=== PATIENT | female | born 1980 | race Caucasian/White ===

== ENCOUNTER 2017-09-22 11:06 | Inpatient (IN) | payer MEDICAID ==
[~2017-09-22] VITALS: Ht 149.9 cm; Wt 47.2 kg
--- NOTE | 2017-09-22 11:25 | NUR ---
patient amb. to bed #2 with
[2017-09-22 11:27] VITALS: BP 126/95
[2017-09-22] MEDS ORDERED: NACL 0.9% 1,000 ML IV SCH ×2 (11:32→13:58)
[2017-09-22] MEDS ORDERED: KETOROLAC 30 MG/ML VIAL IVP ONE (11:35)
[2017-09-22] MEDS ORDERED: ONDANSETRON 4 MG/2 ML VIAL IVP ONE (11:35)
[2017-09-22 12:00] LABS: HEMATOCRIT 43.9 % (36-48); HEMOGLOBIN 14.4 g/dL (12.0-16.0); MEAN CORPUSCULAR HEMOGLOBIN 30 pg (27-31); MEAN CORPUSCULAR HGB CONC 33 g/dL (33-37); MEAN CORPUSCULAR VOLUME 90 fL (80-94); PLATELET COUNT (AUTO) 441 K/uL (140-450); RED BLOOD CELL COUNT(AUTO) 4.89 MIL/uL (4.20-5.40); WHITE BLOOD COUNT (AUTO) 8.7 K/uL (4.8-10.8)
--- NOTE | 2017-09-22 12:25 | NUR ---
pt stated pain relieved at this time.
[2017-09-22 12:58] LABS: LYMPHOCYTES % (MANUAL) 20 % (20-46); MONOCYTES % (MANUAL) 6 % (5-12)
[2017-09-22 13:06] LABS: ANION GAP 25.1 (8-16); CARBON DIOXIDE 11.5 mmol/L (21-32); CREATININE 0.6 mg/dL (0.6-1.3); POTASSIUM 3.6 mmol/L (3.5-5.1)
[2017-09-22 13:12] LABS: ALBUMIN 3.5 g/dL (3.4-5.0); TOTAL BILIRUBIN 0.6 mg/dL (0.0-1.0)
[2017-09-22 13:13] LABS: PROTHROMBIN TIME 9.8 secs (10.8-13.4)
[2017-09-22] MEDS ORDERED: NACL 0.9% 1,000 ML IV ONE (13:20)
[2017-09-22] MEDS ORDERED: INSULIN REGULAR, HUMAN 100 UNIT/ML VIAL SUBQ ONE (13:25)
[2017-09-22] MEDS ORDERED: NACL 0.45% 1,000 ML IV ONE (13:40)
[2017-09-22] MEDS ORDERED: INSULIN REGULAR, HUMAN 100 UNIT in NACL 0.9% 100 ML IV ONE ×2 (13:40)
[2017-09-22] MEDS ORDERED: HYDROcodone/APAP 7.5/325 MG 1 TAB PO PRN (14:00)
[2017-09-22] MEDS ORDERED: ACETAMINOPHEN 325 MG TAB PO PRN (14:00)
[2017-09-22] MEDS ORDERED: ONDANSETRON 4 MG/2 ML VIAL IVP PRN (14:00)
[2017-09-22] MEDS ORDERED: DEXTROSE 50% 50 ML SYR IVP PRN (14:10)
[2017-09-22 14:20] LABS: BILIRUBIN,URINE NEGATIVE (NEGATIVE); BLOOD, URINE 3+ (NEGATIVE); COLOR,URINE YELLOW (YELLOW); LEUKOCYTE ESTERASE ,URINE NEGATIVE (NEGATIVE); NITRITE, URINE NEGATIVE (NEGATIVE); UGLUCOSE 2+ (NEGATIVE)
[2017-09-22] MEDS ORDERED: INSULIN REGULAR, HUMAN 100 UNIT in NACL 0.9% 100 ML IV SCH ×2 (14:30)
[2017-09-22] MEDS ORDERED: POTASSIUM CHL 20 MEQ/NACL 0.9% 1,000 ML IV ONE (14:30)
[2017-09-22] MEDS ORDERED: POTASSIUM CHL 20 MEQ/D5-1/2NS 1,000 ML IV ONE (14:30)
[2017-09-22 14:45] LABS: APPEARANCE,URINE HAZY (CLEAR)
[2017-09-22 14:51] LABS: RBC,URINE 3-10 (FEW) /HPF (0-5); WBC,URINE 0-5 (RARE) /HPF (0-5)
[2017-09-22 14:54] LABS: CHOL/HDL RATIO 6.5 (1-4.5); FREE T4 (FREE THYROXINE) 1.31 ng/dL (0.76-1.46); MAGNESIUM 2.1 mg/dL (1.8-2.4); PHOSPHORUS 2.2 mg/dL (2.5-4.9); THYROID STIMULATING HORMONE 1.36 uIU/mL (0.34-3.74)
--- NOTE | 2017-09-22 15:09 | NUR ---
PT TRANSFERRED TO ICU BED 3. PT AWAKE, ALERT, AND ORIENTED. ON ROOM AIR, NO S/S OF RESPIRATORY DISTRESS NOTED. VITALS STABLE AT THIS TIME.
[2017-09-22] MEDS ORDERED: BLOOD GLUCOSE MONITORING 1 DEV DEV FS SCH (15:10)
--- NOTE | 2017-09-22 15:15 | NUR ---
RECEIVED PT FROM ER MOODY WHITTAKER. SHE IS AWAKE AND ALERT SERBIAN SPEAKING. SKIN DRY ANAD WARM TO TOUCH SHE IS IN ROOM AIRO2 SAT 100% IV SITE ON RT AC HAS # 20 HEP LOCK. ON RT HAND HAS #22 INFUSING INSULIN IV DRIP [id number] /HR THE SITE ARE DRY AND INTACT. ABDOMEN SOFT . NON-DISTENDED EXTREAMITIES NO DEFORMITY . NO EDEMATES NOTE. SHE ADM. TO ICU#3 , PT. WAS SEEN BY DR. FLYNN AT [facility]
[2017-09-22 16:19] VITALS: BP 118/78
[2017-09-22 16:49] LABS: CARBON DIOXIDE 13.7 mmol/L (21-32); CREATININE 0.4 mg/dL (0.6-1.3)
[2017-09-22 16:50] LABS: ANION GAP 17.3 (8-16)
--- NOTE | 2017-09-22 17:10 | NUR ---
BLOOD SUGAR 194. INSULIN DRIP RATE DECREASED TO 2.26 UNITS/HR (2.26 ML/HR). DR. POPE MADE AWARE. NO NEW ORDERS AT THIS TIME.
--- NOTE | 2017-09-22 17:30 | NUR ---
CT ABDOMEN/PELVIS COMPLETED. PT TOLERATED WELL. VITAL SIGNS STABLE.
[2017-09-22 18:00] VITALS: BP 103/69
--- NOTE | 2017-09-22 18:15 | NUR ---
BLOOD SUGAR 225. NO CHANGES FOR INSULIN DRIP RATE.
[2017-09-22] MEDS: BLOOD GLUCOSE MONITORING 1 DEV DEV FS SCH ×5 (19:10→23:18)
--- NOTE | 2017-09-22 19:20 | NUR ---
REPORT GIVEN TO NIGHT NURSE FOR CONTINUITY OF CARE. PT IS IN STABLE CONDITION.
--- NOTE | 2017-09-22 19:29 | NUR ---
LM=[id number]. INSULIN DRIP INCREASED TO 4.5 UNITS/HR AND IVF CHANGED TO NACL+KCL ORDERED.
--- NOTE | 2017-09-22 19:30 | NUR ---
PT A&OX4. RUSSIAN SPEAKING. BILATERAL LUNGS SOUND CLEAR. 100% @ROOM AIR. S1 AND S2 HEARD WITHOUT ABNORMAL HEART SOUND. PT C/O ACHING AND TINGLING PAIN TO THE BILATERAL LOWER FEET. NORCO ADMINISTERED ORDERED. WILL EVALUATE THE EFFECTIVENESS. IV SITES TO LEFT HAND 22G AND RIGHT AC 20G. ALL PATENT AND ASYMPTOMATIC. SR ON MONITOR. AFEBRILE. DENIES N/V AT THIS TIME. CAP REFILL WITHIN 2 SEC. ABLE TO MOVE ALL EXTREMITIES WITHOUT DIFFICULTY. BED SIDE COMMODE NOTED. INSTRUCTED WITH CALL LIGHT SYSTEM. CALL LIGHT IN REACH AND HOB ELEVATED 30 DEGREES. BED KEPT TO THE LOWEST POSITION. WILL CONTINUE TO MONITOR.
[2017-09-22 20:00] VITALS: BP 110/72
--- NOTE | 2017-09-22 20:16 | NUR ---
YN=782. INSULIN DRIP CHANGED TO 2.26 UNITS/HR AND IVF CHANGED TO D5 1/2 NS+KCL @100ML/HR (BS<250) ORDERED.
[2017-09-22 20:28] LABS: ANION GAP 14.7 (8-16); CARBON DIOXIDE 16.1 mmol/L (21-32); CREATININE 0.4 mg/dL (0.6-1.3)
[2017-09-22] MEDS: DOCUSATE SODIUM 100 MG GELCAP PO SCH (20:29)
[2017-09-22 20:30] LABS: POTASSIUM 2.8 mmol/L (3.5-5.1)
[2017-09-22] MEDS ORDERED: KCL 20 MEQ/WATER INJ PREMIX 200 ML IV ONE (20:38)
--- NOTE | 2017-09-22 20:38 | NUR ---
DR. CHAIDEZ IN UNIT. NOTIFIED ABOUT THE K RIDER BEING NOT VERIFIED YET AND [facility] IS NOT AVAILABLE UNTIL 9PM. AND THE CHARGE NURSE MADE AWARE OF THE OVERWRITING THE MED TO BE STARTED DUE TO LOW POTASSIUM LEVEL.
--- NOTE | 2017-09-22 20:40 | NUR ---
FIRST BAG OF K RIDER STARTED ORDERED.
--- NOTE | 2017-09-22 21:02 | NUR ---
[facility] CALLED @[phone] FOR NEED OF VERIFICATION OF NEW MEDS.
--- NOTE | 2017-09-22 21:05 | NUR ---
FF=441. CONTINUING WITH SAME INSULIN DRIP AND IVF. Brenden ACOSTA IS RUNNING WELL.
--- NOTE | 2017-09-22 21:10 | NUR ---
KCL 40 MYRA ORAL TAB ORDER NOTED. CALLED DR. CHAIDEZ IF OK TO GIVE BECAUSE K RIDER IV [address] CHAIDEZ SAID OK TO GIVE BOTH DUE TO POTASSIUM BEING VERY LOW. WILL CARRY OUT.
[2017-09-22] MEDS ORDERED: POTASSIUM CHLORIDE 10 MEQ TABER PO SCH (21:30)
[2017-09-22] MEDS ORDERED: KCL 20 MEQ/WATER INJ PREMIX 200 ML IV SCH (21:30)
[2017-09-22 22:00] VITALS: BP 95/64
--- NOTE | 2017-09-22 22:10 | NUR ---
PR=767. CONTINUING W/ SAME RATE ON INSULIN DRIP, SAME IVF. K RIDER IS RUNNING ORDERED.
--- NOTE | 2017-09-22 22:40 | NUR ---
2ND BAG OF K RIDER IS RUNNING AT THIS TIME.
--- NOTE | 2017-09-22 23:18 | NUR ---
KU=159. SAME RATE OF INSULIN DRIP AND IVF ARE RUNNING. PT DENIES PAIN OR DISCOMFORT AT THIS TIME. NO ACUTE DISTRESS NOTED.
--- NOTE | 2017-09-22 23:46 | NUR ---
PT WAS ASSISTED TO USE BED SIDE COMMODE. URINATED 600ML CLEAR YELLOW URINE. ASSISTED BACK TO BED. PT DENIES PAIN OR DISCOMFORT. VS WITHOUT ACUTE DISTRESS. WILL CONTINUE TO MONITOR.
[2017-09-23] VITALS (9 sets, daily range): BP systolic 99–118; BP diastolic 52–90
--- NOTE | 2017-09-23 00:15 | NUR ---
DZ=773. SAME RATE OF INSULIN DRIP AND IVF RUNNING. PT DENIES PAIN OR DISCOMFORT. VS WITHOUT ACUTE DISTRESS. ALL SAFETY PRECAUTIONS ARE IN PLACE.
[2017-09-23] MEDS: BLOOD GLUCOSE MONITORING 1 DEV DEV FS SCH ×8 (00:16→23:34)
[2017-09-23 00:32] LABS: ANION GAP 13.3 (8-16); CARBON DIOXIDE 17.5 mmol/L (21-32); POTASSIUM 3.8 mmol/L (3.5-5.1)
[2017-09-23 00:43] LABS: CREATININE 0.3 mg/dL (0.6-1.3)
--- NOTE | 2017-09-23 01:25 | NUR ---
KQ=626. CONTINUING WITH SAME RATE OF INSULIN DRIP AND IVF. DENIES PAIN OR DISCOMFORT. VS WITHOUT ACUTE DISTRESS. WILL CONTINUE TO MONITOR.
--- NOTE | 2017-09-23 01:50 | NUR ---
RECEIVED NEW ORDERS FROM DR. CHAIDEZ. PER DR. CHAIDEZ, PT'S 2 CONSECUTIVE ANIONGAPS ARE CLOSED. NEW ORDER RECEIVED AND WILL CARRY OUT.
[2017-09-23] MEDS ORDERED: INSULIN LANTUS 100 UNITS/ML 10 ML VIAL SUBQ SCH (02:00)
[2017-09-23] MEDS: NACL 0.9% 1,000 ML IV SCH ×2 (02:07→12:07)
--- NOTE | 2017-09-23 02:10 | NUR ---
KI=228. LANTUS 11 UNITS ADMINISTERED AND IVF CHANGED TO NACL @90ML/HR ORDERED. INSULIN DRIP STILL RUNNING AT 2.26 UNITS/HR. WILL STOP THE INSULIN DRIP 1-[address] CHAIDEZ'S ORDER. PT DENIES PAIN OR DISCOMFORT. VS WITH NO ACUTE DISTRESS NOTED. WILL CONTINUE TO MONITOR.
--- NOTE | 2017-09-23 03:13 | NUR ---
LY=643. DR. CHAIDEZ MADE AWARE AND OK TO DISCONTINUE INSULIN DRIP AT THIS TIME. NOTED AND WILL CARRY OUT.
[2017-09-23] MEDS ORDERED: DEXTROSE 50% 50 ML SYR IVP PRN (03:15)
[2017-09-23] MEDS: INSULIN LISPRO SLIDING SCALE 100 UNITS/ML VIAL SUBQ PRN ×6 (04:04→23:42)
--- NOTE | 2017-09-23 04:05 | NUR ---
DW=778. INSULIN COVERAGE ADMINISTERED PER SLIDING SCALE.
--- NOTE | 2017-09-23 04:19 | NUR ---
ASSISTED PT TO USE THE BED SIDE COMMODE. PT STARTED MENSTRUATION. URINATED 600ML. PROVIDED WITH FEMININE PAD. ASSISTED WITH MORNING CARE. DENIES PAIN OR DISCOMFORT. VS WITHOUT ACUTE DISTRESS. AFEBRILE. ALL SAFETY PRECAUTIONS ARE IN PLACE. WILL CONTINUE TO MONITOR.
[2017-09-23 04:52] LABS: CARBON DIOXIDE 18.5 mmol/L (21-32); CREATININE 0.3 mg/dL (0.6-1.3); POTASSIUM 3.5 mmol/L (3.5-5.1)
[2017-09-23 04:56] LABS: MAGNESIUM 1.8 mg/dL (1.8-2.4); PHOSPHORUS 1.5 mg/dL (2.5-4.9)
[2017-09-23 05:13] LABS: BASOPHILS # (AUTO) 0.3 K/uL (0.00-0.22); EOSINOPHILS # (AUTO) 0.1 K/uL (0-0.4); HEMATOCRIT 36.6 % (36-48); HEMOGLOBIN 12.3 g/dL (12.0-16.0); LYMPHOCYTES # (AUTO) 1.8 K/uL (2.5-16.5); LYMPHOCYTES % (AUTO) 23.4 % (20.5-51.1); MEAN CORPUSCULAR HEMOGLOBIN 30 pg (27-31); MEAN CORPUSCULAR HGB CONC 34 g/dL (33-37); MEAN CORPUSCULAR VOLUME 88 fL (80-94); MONOCYTES # (AUTO) 0.8 K/uL (0.8-1.0); MONOCYTES % (AUTO) 9.8 % (1.7-9.3); NEUTROPHILS # (AUTO) 4.7 K/uL (1.8-7.7); NEUTROPHILS % (AUTO) 61.8 % (42.2-75.2); PLATELET COUNT (AUTO) 424 K/uL (140-450); RED BLOOD CELL COUNT(AUTO) 4.15 MIL/uL (4.20-5.40); RED CELL DISTRIBUTION WIDTH 13.1 % (11.6-13.7); WHITE BLOOD COUNT (AUTO) 7.7 K/uL (4.8-10.8)
--- NOTE | 2017-09-23 05:30 | NUR ---
PT SLEEPING. NO S/SX OF PAIN OR DISCOMFORT. VS WITHOUT ACUTE DISTRESS. WILL CONTINUE TO MONITOR.
--- NOTE | 2017-09-23 07:17 | NUR ---
BED SIDE REPORT GIVEN TO MORNING RNDIAN FOR CONTINUITY OF CARE. PT VS WITHOUT ACUTE DISTRESS. ALL SAFETY PRECAUTIONS ARE IN PLACE.
--- NOTE | 2017-09-23 07:17 | NUR ---
RECEIVED REPORT FROM DIAN MAKI. PT IS COOPERATIVE, AWAKE AND ALERT IN BED, A&OX4. ABLE TO MOVE FREELY IN BED. PT HAS HOB 35% AND SCDS ON. NS RUNNING IN RIGHT AC, 20 G, 90ML/HR. PERRLA, BRISK. SKIN IS WARM, DRY AND IN TACT. LUNG SOUNDS ARE CLEAR AND SLIGHTLY DIMINISHED AT BASE. BOWELS SOUNDS PRESENT IN ALL 4 QUADRANTS. PT ON CLEAR LIQUID DIET. AMBULATES AND USES THE COMMODE. NORMAL SINUS ON MONITOR. PTS DISTAL PULSES +3 WITH NO EDEMA PRESENT. PT DENIES ALL PAIN.
--- NOTE | 2017-09-23 08:00 | NUR ---
BLOOD SUGAR= 303, 8 UNITS OF HUMALOG INSULIN COVERAGE NEEDED, SLIDING SCALE.
[2017-09-23] MEDS: GABAPENTIN 300 MG CAP PO SCH ×3 (08:45→18:12)
[2017-09-23] MEDS: DOCUSATE SODIUM 100 MG GELCAP PO SCH ×2 (08:45→20:37)
[2017-09-23] MEDS: ASPIRIN 81 MG TAB.CHEW PO SCH (08:45)
[2017-09-23] MEDS: ATORVASTATIN 20 MG TAB PO SCH (08:50)
--- NOTE | 2017-09-23 08:50 | NUR ---
PT TRAY ARRIVED OF NEW DIET, ORDER PLACED BY DR. POPE. PT EATING, AT BEDSIDE.
[2017-09-23 09:38] LABS: ANION GAP 13.8 (8-16); CARBON DIOXIDE 19.8 mmol/L (21-32); CREATININE 0.3 mg/dL (0.6-1.3); POTASSIUM 3.6 mmol/L (3.5-5.1)
--- NOTE | 2017-09-23 11:10 | NUR ---
ORDERS RECEIVED FROM DR. POPE FOR PT TO SHOWER AFTER TRANSFERRED TO TELE. PT HAS REQUESTED TO TAKE ONE SOON POSSIBLE.
--- NOTE | 2017-09-23 11:45 | NUR ---
RECEIVED ORDERS FROM DR. POPE FOR TRANSFER TO TELE. [facility] HAS BEEN CALLED AND NOTIFIED OF ORDERS. WAITING FOR ROOM NUMBER.
--- NOTE | 2017-09-23 11:50 | NUR ---
PROVIDED EDUCATION HANDOUTS IN MALAY ON DKA, NEW DX OF DIABETES, HEALTHY EATING, STRESS AND MANAGEMENT OF DIABETES. PT ACKNOWLEDGMENT OF EDUCATION RECEIVED SIGNED AND IN CHART.
--- NOTE | 2017-09-23 13:00 | NUR ---
PT HAS BEEN RESTING ALL MORNING, SHE HAD AN HOUR NAP AND WOKE UP FOR LUNCH. PT ATE 100% OF LUNCH.
--- NOTE | 2017-09-23 14:00 | NUR ---
GAVE PT FULL BED BATH AND WASHED HAIR. HELPED REPOSITION PATIENT FOR COMFORT, HOB 35%, 3 RAILS RAISED AND BED LEFT IN LOWEST POSITION, ALARMS CHECKED AND BED LOCK IN PLACE.
[2017-09-23] MEDS ORDERED: PROBIOTIC SCREEN 1 EA MISC MC PRN (14:10)
--- NOTE | 2017-09-23 15:30 | NUR ---
PT SLEEPING IN BED, CALL LIGHT WITHIN REACH, TV ON AND 3 SIDE RAILS UP WITH BED IN LOWEST POSITION. PRIOR TO PT'S NAP, PT DENIED ALL PAIN AND SAID "THE MEDICATION IS REALLY HELPING ME"
--- NOTE | 2017-09-23 16:39 | NUR ---
CALLED [facility] TO CHECK ON ROOM STATUS FOR PT. NO BED AVAILABLE YET. WILL CONTINUE TO CHECK ON STATUS.
--- NOTE | 2017-09-23 18:10 | NUR ---
TRANSFERRED PT TO 105B TELE, TRANSFERRED CARE TO SHANTHI BRITTON.
--- NOTE | 2017-09-23 18:10 | NUR ---
RECEIVED PATIENT FROM ICU. PATIENT AWAKE , ALERT AND ORIENTED. NO S/S OF DISTRESS NOTED. PATIENT DENIES PAIN. PATIENT ON ROOM AIR. IV LINE NOTED TO THE LEFT AC WITH IVF INFUSING WELL. IV LINE ON THE LEFT HAND SALINE LOCKED. PATIENT ON TELE MONITORING. BED LOWERED WITH CALL LIGHT WITHIN REACH. WILL CONTINUE TO MONITOR
--- NOTE | 2017-09-23 19:26 | NUR ---
PATIENT REPORT GIVEN AT BEDSIDE. PATIENT ENDORSED IN STABLE CONDITION
--- NOTE | 2017-09-23 19:30 | NUR ---
RECEIVED FROM AM RN IN BED AWAKE AND USING CELL PHONE. LATVIAN SPEAKING. ABLE TO UNDERSTAND A LITTLE YORUBA. PT. ON TELEMETRY MONITORING. TRANSFER FROM ICU. DX. OF DKA/NEW DM. CARE PLAN FOR THE NIGHT DISCUSSED WITH HER AND CALL LIGHT EXPLAINED TO HER TOO. AFEBRILE. NO S/S OF HYPER/HYPOGLYCEMIA NOTED AT THIS TIME. IVF SITE TO RAC#20 WITH NS AT 90 ML/H INTACT AND NO INFILTRATION.
--- NOTE | 2017-09-23 23:43 | NUR ---
RESIDENT MD CHAIDEZ ORDERED THAT FOR BLOOD SUGAR 302 AT THIS TIME TO GIVE ONLY 4 UNITS OF HUMALOG INSULIN. MADE CHARGE NURSE AWARE.
[2017-09-24 00:33] VITALS: BP 103/64
--- NOTE | 2017-09-24 00:34 | NUR ---
PT. STILL AWAKE AND WATCHING SOMETHING IN HER CELL PHONE. ENCOURAGED TO SLEEP. NO SOB. TELEMETRY MONITORING. CALL LIGHT WITH IN REACH.
[2017-09-24] MEDS: NACL 0.9% 1,000 ML IV SCH (02:45)
--- NOTE | 2017-09-24 02:55 | NUR ---
CALL LIGHT WITH IN REACH. A/O X 4. SLEEPING. NO RESTLESSNESS.
[2017-09-24] MEDS: BLOOD GLUCOSE MONITORING 1 DEV DEV FS SCH ×5 (04:20→20:00)
[2017-09-24] MEDS: INSULIN LISPRO SLIDING SCALE 100 UNITS/ML VIAL SUBQ PRN ×4 (04:22→21:15)
--- NOTE | 2017-09-24 04:33 | NUR ---
PT. SLEEPING. WOKE HER UP FOR ANOTHER BLOOD SUGAR [id number]=616 MG/DL. COVERED WITH HUMALOG ORDERED OF 8 UNITS. TOLERATED WELL. TELEMETRY MONITORING.
[2017-09-24 04:47] VITALS: BP 106/65
[2017-09-24] MEDS: glipiZIDE 5 MG TAB PO SCH (05:30)
[2017-09-24 06:52] LABS: BASOPHILS # (AUTO) 0.3 K/uL (0.00-0.22); BASOPHILS % (AUTO) 4.4 % (0.0-2.0); EOSINOPHILS # (AUTO) 0.1 K/uL (0-0.4); EOSINOPHILS % (AUTO) 1.2 % (0.0-4.0); HEMATOCRIT 35.9 % (36-48); HEMOGLOBIN 11.9 g/dL (12.0-16.0); LYMPHOCYTES # (AUTO) 2.2 K/uL (2.5-16.5); LYMPHOCYTES % (AUTO) 34.5 % (20.5-51.1); MEAN CORPUSCULAR HEMOGLOBIN 30 pg (27-31); MEAN CORPUSCULAR HGB CONC 33 g/dL (33-37); MEAN CORPUSCULAR VOLUME 90 fL (80-94); MONOCYTES # (AUTO) 0.5 K/uL (0.8-1.0); MONOCYTES % (AUTO) 8.3 % (1.7-9.3); NEUTROPHILS # (AUTO) 3.2 K/uL (1.8-7.7); NEUTROPHILS % (AUTO) 51.6 % (42.2-75.2); PLATELET COUNT (AUTO) 438 K/uL (140-450); WHITE BLOOD COUNT (AUTO) 6.3 K/uL (4.8-10.8)
[2017-09-24 07:15] LABS: ANION GAP 14.1 (8-16); CARBON DIOXIDE 23.8 mmol/L (21-32); CREATININE 0.3 mg/dL (0.6-1.3)
[2017-09-24 07:24] LABS: MAGNESIUM 1.8 mg/dL (1.8-2.4); PHOSPHORUS 3.1 mg/dL (2.5-4.9)
--- NOTE | 2017-09-24 07:31 | NUR ---
ENDORSED TO THE NEXT RN FOR CONTINUITY OF CARE.SLEEPING. WAKES UP EASILY WHEN AWAKENED. A/O X 4. ROM X 4. CLEAR SPEECH. TELEMETRY MONITORING.
[2017-09-24 07:35] LABS: POTASSIUM 2.9 mmol/L (3.5-5.1)
--- NOTE | 2017-09-24 07:35 | NUR ---
RECEIVED REPORT FROM NFL PLAYER NURSE, PT IS RESTING IN BED, AAOX4, AMBULATORY, PT HAS IV ON THE LEFT AC, PATENT, INTACT, FLUSHING WELL, PT HAS IV ON THE LEFT HAND, SL, PATENT, INTACT, FLUSHING WELL, NO S/S OF RESPIRATORY DISTRESS OR DISCOMFORT NOTED, DISCUSSED PLAN OF CARE WITH PT, PT VERBALIZED UNDERSTANDING, CALL LIGHT WITHIN REACH, WILL CONTINUE TO MONITOR.
[2017-09-24 08:00] VITALS: BP 99/68
[2017-09-24] MEDS: MAGNESIUM OXIDE 400 MG TAB PO SCH ×2 (08:37→21:07)
[2017-09-24] MEDS: ASPIRIN 81 MG TAB.CHEW PO SCH (08:48)
[2017-09-24] MEDS: DOCUSATE SODIUM 100 MG GELCAP PO SCH ×2 (08:48→21:07)
[2017-09-24] MEDS: metFORMIN 500 MG TAB PO SCH ×2 (08:49→17:41)
[2017-09-24] MEDS: POTASSIUM CHLORIDE 10 MEQ TABER PO SCH (08:50)
[2017-09-24] MEDS: GABAPENTIN 300 MG CAP PO SCH ×3 (08:50→17:41)
[2017-09-24] MEDS: ATORVASTATIN 20 MG TAB PO SCH (08:50)
[2017-09-24] MEDS: INSULIN LANTUS 100 UNITS/ML 10 ML VIAL SUBQ SCH (09:00)
[2017-09-24] MEDS ORDERED: POTASSIUM CHLORIDE 40 MEQ, LIDOCAINE 1% 25 MG in NACL 0.9% 250 ML IV SCH (09:00)
[2017-09-24] MEDS ORDERED: INSULIN LANTUS 100 UNITS/ML 10 ML VIAL SUBQ SCH (09:00)
--- NOTE | 2017-09-24 09:59 | NUR ---
PATIENT HAS BEEN SCREENED AND CATEGORIZED HIGH NUTRITION RISK. PATIENT WILL BE SEEN WITHIN 1-2 DAYS OF ADMISSION. 09/22/17-09/24/[address]
[2017-09-24 14:29] LABS: BARBITURATE, URINE NEG. ng/ml (NEG <=200); BENZODIAZEPINE, URINE NEG. ng/mL (NEG <=200); CANNABINOID, URINE NEG. ng/mL (NEG <=50); COCAINE, URINE NEG. ng/mL (NEG <=300); OPIATE, URINE NEG. ng/mL (NEG <=2000); PHENCYCLIDINE SCREEN,URINE NEG. ng/mL (NEG <=25)
--- NOTE | 2017-09-24 15:53 | NUR ---
09/24/2017 RD INITIAL ASSESSMENT COMPLETED PLEASE REFER TO NUTRITION ASSESSMENT UNDER CARE ACTIVITY FOR ESTIMATED NUTRITIONAL NEEDS. CONTINUE [facility]SE CONTROL RD TO DISC DIABETIC DIET AND REFER PT TO OUTPATIENT DIABETES EDUCATION (COMPLETED) RD TO FOLLOW-UP IN 2-3 DAYS PATIENT IS HIGH RISK. FERNANDO DE LA PAZ, RD
[2017-09-24 16:00] VITALS: BP 104/63
[2017-09-24] MEDS ORDERED: GABA-638 PO (16:46)
[2017-09-24] MEDS ORDERED: ASPI81CT95 PO (16:46)
[2017-09-24] MEDS ORDERED: GLIP5TAB13 PO (16:46)
[2017-09-24] MEDS ORDERED: POTA10TE30 PO (16:46)
[2017-09-24] MEDS ORDERED: ATOR20TA40 PO (16:46)
[2017-09-24] MEDS ORDERED: GLUC-805 FS (16:46)
[2017-09-24] MEDS ORDERED: GLU500 PO (16:46)
[2017-09-24] MEDS ORDERED: LANTUS SUBQ (16:46)
[2017-09-24 19:13] LABS: CARBON DIOXIDE 26.3 mmol/L (21-32); POTASSIUM 4.3 mmol/L (3.5-5.1)
[2017-09-24 19:14] LABS: CREATININE 0.4 mg/dL (0.6-1.3)
--- NOTE | 2017-09-24 19:25 | NUR ---
RECEIVED FROM AM RN IN BED AWAKE AND ALERT. SPOUSE AT BEDSIDE. NO SOB. ABLE TO VERBALIZE NEEDS WELL. SPOUSE SPEAKS [place] CITIZEN WELL AND PT. NOTED ABLE TO UNDERSTAND [place] CITIZEN TOO. NO COMPLAINTS DONE.
--- NOTE | 2017-09-24 19:29 | NUR ---
ENDORSED PT TO FINANCIAL ADMINISTRATION OFFICER NURSE FOR CONTINUITY OF CARE, PT STABLE AT THIS TIME.
--- NOTE | 2017-09-24 22:30 | NUR ---
PT. STILL AWAKE AT THIS TIME. USING PHONE AND TALKING WITH SOMEONE . NO COMPLAINTS DONE.
--- NOTE | 2017-09-25 | NUR ---
SLEEPING . NO RESTLESSNESS. CALL LIGHT WITH IN REACH AT ALL TIMES, INDEPENDENT.
[2017-09-25] MEDS: BLOOD GLUCOSE MONITORING 1 DEV DEV FS SCH ×3 (00:15→07:57)
[2017-09-25] MEDS: NACL 0.9% 1,000 ML IV SCH (00:19)
[2017-09-25] MEDS: INSULIN LISPRO SLIDING SCALE 100 UNITS/ML VIAL SUBQ PRN ×3 (00:22→07:59)
[2017-09-25 00:50] VITALS: BP 96/62
--- NOTE | 2017-09-25 03:36 | NUR ---
SLEEPING WELL. NO RESTLESSNESS NOTED.
--- NOTE | 2017-09-25 04:22 | NUR ---
BLOOD SUGAR CHECK PER FINGERSTICK AT THIS TIME IS 279 AND COVERED WITH REGULAR INSULIN 6 UNITS. NO COMPLAINTS DONE.
[2017-09-25] MEDS: glipiZIDE 5 MG TAB PO SCH (06:32)
--- NOTE | 2017-09-25 06:44 | NUR ---
PT. SLEPT BACK. NO COMPLAINTS DONE THIS SHIFT.
--- NOTE | 2017-09-25 07:15 | NUR ---
ASSUMED CONTINUITY OF CARE. NO SIGNS AND SYMPTOMS OF ACUTE DISTRESS NOTED. INITIAL ASSESSMENT DONE. EXPLAINED DIAGNOSIS, PLAN OF CARE, PAIN MANAGEMENT TEACHING, USE OF CALL LIGHT/BED/TV/BATHROOM. VERBALIZED UNDERSTANDING. CALL LIGHT WITHIN REACH.
[2017-09-25] MEDS: metFORMIN 500 MG TAB PO SCH (07:57)
[2017-09-25 08:00] VITALS: BP 94/56
[2017-09-25 08:44] LABS: BASOPHILS # (AUTO) 0.5 K/uL (0.00-0.22); BASOPHILS % (AUTO) 4.9 % (0.0-2.0); EOSINOPHILS # (AUTO) 0.1 K/uL (0-0.4); EOSINOPHILS % (AUTO) 0.9 % (0.0-4.0); HEMATOCRIT 37.9 % (36-48); HEMOGLOBIN 12.5 g/dL (12.0-16.0); LYMPHOCYTES # (AUTO) 2.3 K/uL (2.5-16.5); LYMPHOCYTES % (AUTO) 24.2 % (20.5-51.1); MEAN CORPUSCULAR HEMOGLOBIN 29 pg (27-31); MEAN CORPUSCULAR HGB CONC 33 g/dL (33-37); MEAN CORPUSCULAR VOLUME 88 fL (80-94); MONOCYTES # (AUTO) 0.8 K/uL (0.8-1.0); MONOCYTES % (AUTO) 7.9 % (1.7-9.3); NEUTROPHILS # (AUTO) 5.9 K/uL (1.8-7.7); NEUTROPHILS % (AUTO) 62.1 % (42.2-75.2); PLATELET COUNT (AUTO) 463 K/uL (140-450); RED BLOOD CELL COUNT(AUTO) 4.31 MIL/uL (4.20-5.40); WHITE BLOOD COUNT (AUTO) 9.6 K/uL (4.8-10.8)
[2017-09-25] MEDS: POTASSIUM CHLORIDE 10 MEQ TABER PO SCH (08:46)
[2017-09-25] MEDS: ATORVASTATIN 20 MG TAB PO SCH (08:46)
[2017-09-25] MEDS: GABAPENTIN 300 MG CAP PO SCH (08:46)
[2017-09-25] MEDS: MAGNESIUM OXIDE 400 MG TAB PO SCH (08:46)
[2017-09-25] MEDS: DOCUSATE SODIUM 100 MG GELCAP PO SCH (08:46)
[2017-09-25] MEDS: ASPIRIN 81 MG TAB.CHEW PO SCH (08:46)
[2017-09-25] MEDS: INSULIN LANTUS 100 UNITS/ML 10 ML VIAL SUBQ SCH (08:52)
--- NOTE | 2017-09-25 09:15 | NUR ---
DR. FERNANDEZ CAME AND SPOKE TO PT. AND PT. AT BEDSIDE REGARDING D/C.
[2017-09-25 09:20] LABS: ANION GAP 11.7 (8-16); CREATININE 0.4 mg/dL (0.6-1.3); POTASSIUM 3.7 mmol/L (3.5-5.1)
[2017-09-25] MEDS ORDERED: INFLUENZA VIRUS VACCINE QUAD 0.5 ML SYR IMVAC SCH (10:25)
--- NOTE | 2017-09-25 10:40 | NUR ---
EXPLAINED TO PT. AND PT. ABOUT MD D/C ORDER, D/C INSTRUCTIONS AND TEACHING, MD PRESCRIPTION LIST EDUCATION, MD FOLLOW-UP, DM TEACHING, DISEASE MANAGEMENT TEACHING, DIET. PT. AND PT. VERBALIZED UNDERSTANDING. ALSO EXPLAINED AND DEMONSTRATED TO PT. AND PT. ABOUT INSULIN SUB-Q ADMINISTRATION AND USED ORANGE FRUIT. PT. AND PT. VERBALIZED UNDERSTANDING.
[2017-09-25 11:00] VITALS: BP 100/62
--- NOTE | 2017-09-25 11:50 | NUR ---
REFUSED WHEELCHAIR FOR D/C. D/C HOME ACCOMPANIED BY PT. -LISA. AWAKE, ALERT, AND ORIENTED X4. SPEECH CLEAR. NO C/O PAIN. NO SOB, NOTED. IN STABLE CONDITION. INFORMED CHARGE NURSE PERFECTO ROSE.
== END 2017-09-25 11:50 | disposition home or self-care (01) | DRG 420 ==
LOC: MED 11:06 → MIC 13:58 → MTU 09-23 11:05
PROVIDERS: ADMIT Family Medicine; ATTEND Family Medicine
PROC: 3E0234Z Introduction of Serum, Toxoid and Vaccine into Muscle, Percutaneous Approach (ICD-10-PCS; principal; 2017-09-25)
DX: E11.10 Type 2 diabetes mellitus with ketoacidosis without coma (principal); N17.0 Acute kidney failure with tubular necrosis; E11.42 Type 2 diabetes mellitus with diabetic polyneuropathy; E11.65 Type 2 diabetes mellitus with hyperglycemia; D68.59 Other primary thrombophilia; I70.209 Unspecified atherosclerosis of native arteries of extremities, unspecified extremity; E86.0 Dehydration; E87.1 Hypo-osmolality and hyponatremia; R82.71 Bacteriuria; R31.9 Hematuria, unspecified; E78.5 Hyperlipidemia, unspecified; E87.6 Hypokalemia; R80.9 Proteinuria, unspecified; Z98.891 History of uterine scar from previous surgery; Z23 Encounter for immunization
CPT/HCPCS: 36415; 36600; 71045; 76705; 80048; 80053; 80305; 81001; 82140; 82150; 82803; 82948; 83036; 83605; 83690; 83735; 83880; 84100; 84439; 84443; 84484; 85025; 85610; 85730; 87040; 87081; 90658; 93005; 93925; 93970; 96374; 96375; 99285; J1644; J1815; J1885; J2001; J2405; J3480; J7030; Q0092

== ENCOUNTER 2019-06-24 10:18 | Emergency (ER) | payer MEDICAID ==
[~2019-06-24] VITALS: Ht 149.9 cm; Wt 54.2 kg
[~2019-06-24 10:18] MED LIST: ASPI81CT95 PO; ATOR20TA40 PO; GABA-638 PO; GLIP5TAB13 PO; GLU500 PO; GLUC-805 FS; LANTUS SUBQ; POTA10TE30 PO
[2019-06-24 10:23] VITALS: BP 129/84
--- NOTE | 2019-06-24 10:26 | NUR ---
URINE CUP HANDED TO PT
--- NOTE | 2019-06-24 10:28 | NUR ---
Patient ambulated to bed 4. RN evaluating patient at bedside.
--- NOTE | 2019-06-24 10:43 | NUR ---
ekg at bedside
--- NOTE | 2019-06-24 10:59 | NUR ---
Dr. Parra is evaluating the patient at bedside.
--- NOTE | 2019-06-24 11:26 | NUR ---
GAVE REPORT TO SHANTHI HENSLEY
--- NOTE | 2019-06-24 12:04 | NUR ---
PATIENT RETURNED FROM CT
--- NOTE | 2019-06-24 12:06 | NUR ---
RECEIVED REPORT FROM SHELLIE CHARGE NURSE.
--- NOTE | 2019-06-24 12:13 | NUR ---
LAB AT BEDSIDE.
[2019-06-24 12:30] LABS: BASOPHILS % (AUTO) 0.3 % (0.0-2.0); EOSINOPHILS # (AUTO) 0.4 K/uL (0-0.4); EOSINOPHILS % (AUTO) 5.5 % (0.0-4.0); HEMATOCRIT 37.1 % (36-48); HEMOGLOBIN 11.9 g/dL (12.0-16.0); LYMPHOCYTES # (AUTO) 1.9 K/uL (2.5-16.5); LYMPHOCYTES % (AUTO) 23.5 % (20.5-51.1); MEAN CORPUSCULAR HEMOGLOBIN 28 pg (27-31); MEAN CORPUSCULAR HGB CONC 32 g/dL (33-37); MEAN CORPUSCULAR VOLUME 87.4 fL (80-94); MONOCYTES # (AUTO) 0.4 K/uL (0.8-1.0); MONOCYTES % (AUTO) 4.6 % (1.7-9.3); NEUTROPHILS # (AUTO) 5.4 K/uL (1.8-7.7); NEUTROPHILS % (AUTO) 66.1 % (42.2-75.2); PLATELET COUNT (AUTO) 387 K/uL (140-450); RED BLOOD CELL COUNT(AUTO) 4.25 MIL/uL (4.20-5.40); RED CELL DISTRIBUTION WIDTH 17.9 % (11.6-13.7); WHITE BLOOD COUNT (AUTO) 8.1 K/uL (4.8-10.8)
[2019-06-24 12:35] LABS: ANION GAP 16.4 (8-16); CARBON DIOXIDE 24.2 mmol/L (21-32); CREATININE 0.8 mg/dL (0.6-1.3); POTASSIUM 4.6 mmol/L (3.5-5.1)
[2019-06-24] MEDS ORDERED: MAGNESIUM SULFATE 50% 1,000 MG in NACL 0.9% 50 ML IV ONE (14:25)
--- NOTE | 2019-06-24 14:44 | NUR ---
called pharmacy for mag sulfate.
[2019-06-24] MEDS ORDERED: MAGNESIUM SULFATE 50% 1,000 MG in NACL 0.9% 50 ML IV SCH (15:00)
[2019-06-24 15:51] VITALS: BP 111/79
--- NOTE | 2019-06-24 15:51 | NUR ---
Patient discharged with v/s stable. Written and verbal after care instructions given and explained. Patient verbalized understanding. Ambulatory with steady gait. All questions addressed prior to discharge. Advised to follow up with PMD.
== END 2019-06-24 15:51 | disposition home or self-care (01) ==
LOC: MED 10:18
DX: R00.2 Palpitations (principal); R07.89 Other chest pain; E11.9 Type 2 diabetes mellitus without complications; Z79.4 Long term (current) use of insulin; Z79.899 Other long term (current) drug therapy; Z79.82 Long term (current) use of aspirin
CPT/HCPCS: 36415; 71046; 80048; 81002; 81025; 83735; 84484; 85025; 93005; 96374; 99284; J3475